=== PATIENT | female | born 1945 | race Caucasian/White ===

== ENCOUNTER → 2024-10-26 | Outpatient (CLI) | payer MEDICARE, BC, SELFPAY ==
[2024-10-26 12:56] LABS: Influenza A Ag Negative; Influenza B Ag Negative
== END | disposition home or self-care (01) ==
LOC: SLDO 11:33
PROVIDERS: PCP Specialist; Referring Provider Specialist; Visit Provider Specialist
DX: R50.9 Fever, unspecified (principal); R05.9 Cough, unspecified
CPT/HCPCS: 87502

== ENCOUNTER → 2024-10-27 | Outpatient (CLI) | payer MEDICARE, BC, SELFPAY ==
--- NOTE | 2024-10-27 09:49 | XR_ITS ---
Examination: PA lateral chest 2 views TECHNIQUE: Upright PA lateral chest 2 views Exam date and time: October 27, 2024 1101 hours INDICATIONS: Coughing shortness of breath beginning 4 days ago. FINDINGS: CABG Normal heart size Lungs are clear Moderate hyperexpansion Prominent osteopenia IMPRESSION: No pneumonia identified
[2024-10-27 12:09] LABS: Basophils # (Auto) 0.1 Thou/mm3 (0.0-0.2); Basophils % (Auto) 1 % (0-2.5); Eosinophils # (Auto) 0.4 Thou/mm3 (0.0-0.5); Eosinophils % (Auto) 4 % (0-10); Hematocrit 34.9 % (36.0-46.0); Hemoglobin 11.3 g/dL (12.0-16.0); Immature Granulocytes % (Auto) 0 % (0-0); Immature Granulocytes Auto 0.02 Thou/mm3 (0.00-0.00); Lymphocytes # (Auto) 1.4 Thou/mm3 (1.0-4.8); Lymphocytes % (Auto) 14 % (10-50); Mean Corpuscular HGB Conc 32.4 g/dl (31.0-37.0); Mean Corpuscular Volume 80 fL (80-100); Monocytes # (Auto) 0.9 Thou/mm3 (0.0-0.8); Monocytes % (Auto) 9 % (0-12); Neutrophils # (Auto) 7.1 Thou/mm3 (1.8-7.7); Neutrophils % (Auto) 72 % (37-80); Nucleated Red Blood Cell % 0 /100 WBC (0); Platelet Count 319 Thou/mm3 (140-440); RDW Standard Deviation 41.1 fL (36.4-46.3); Red Blood Count 4.34 Miln/mm3 (4.00-5.20); White Blood Count 9.9 Thou/mm3 (3.6-11.0)
[2024-10-27 12:22] LABS: B-Type Natriuretic Peptide 38 pg/mL (0-100)
[2024-10-27 12:26] LABS: Alanine Aminotransferase 12 U/L (10-49); Albumin, Serum 5.1 gm/dL (3.4-4.8); Albumin/Globulin Ratio 2.2 (1.2-2.2); Alkaline Phosphatase 77 U/L (46-116); Anion Gap 9 (7-16); Aspartate Amino Transferase 13 U/L (0-34); BUN/Creatinine Ratio 11 Ratio (12-20); Bilirubin,Total 0.7 mg/dL (0.3-1.2); Blood Urea Nitrogen 15 mg/dL (9-23); Calcium 10.2 mg/dL (8.3-10.6); Calcium (Corrected) 10.2 mg/dL (8.5-10.1); Carbon Dioxide 26.6 mMol/L (20.0-31.0); Chloride 98 mMol/L (98-107); Creatinine (Component) 1.4 mg/dL (0.6-1.3); Globulin 2.3 gm/dL (2.3-3.5); Glucose 151 mg/dL (74-106); Osmolality,Calculated 272 (275-295); Potassium 4.2 mMol/L (3.4-5.1); Sodium 134 mMol/L (136-145); Total Protein 7.4 gm/dL (5.7-8.2); Troponin I < 0.020 ng/mL (0.0-0.045); eGFR 38 See Note
[2024-10-27 12:29] LABS: D-Dimer 917 ng/mL (<600)
== END | disposition home or self-care (01) ==
LOC: CDIM 09:35 → COPL 11:10
PROVIDERS: Referring Provider Specialist; Visit Provider Radiology Diagnostic Radiology
DX: R06.2 Wheezing (principal); R06.00 Dyspnea, unspecified
CPT/HCPCS: 36415; 71046; 80053; 83880; 84484; 85025; 85379

== ENCOUNTER → 2024-10-28 | Outpatient (CLI) | payer MEDICARE, BC, SELFPAY ==
--- NOTE | 2024-10-28 08:47 | XR_ITS ---
Examination: CTA chest with intravenous contrast 2-D reconstructions 3-D reconstructions, vascular Date and time of exam: October 28, 2024 1148 hours INDICATIONS: Elevated d-dimer shortness of breath chest pain wheezing beginning October 27, 2024 CTDI: vol (mGy) 9.58 DLP: (mGycm) 260 Technique: Multiple axial sections of the thorax have been obtained. 3 mm slice thickness, from below the hemidiaphragms to above the apices of the lungs. Mediastinal and lung density settings have been obtained. 2-D sagittal and coronal reconstructions. 3-D angiographic renderings, 3-D volume renderings, 3D post processing, vascular maximum intensity projections obtained. Contrast administered is 60 cc Isovue-300. Low dose protocols were performed. One or more of the following dose reduction techniques were used; automated exposure control, adjustment of the mA and/or KV according to patient size, use of iterative reconstruction technique. Findings: No thoracic aortic aneurysmal dilatation No pulmonary artery emboli No paratracheal tracheobronchial or bronchopulmonary adenopathy Mild enlargement cardiac contour Heavy calcification left anterior descending left circumflex right coronary arteries No pneumonia or pulmonary edema No pleural disease No visualized liver or splenic lesion Kidneys partially visualized no hydronephrosis No pancreatic mass Severe osteopenia IMPRESSION: Heavy coronary artery calcification Negative for pulmonary artery emboli
== END | disposition home or self-care (01) ==
PROVIDERS: PCP Specialist; Referring Provider Specialist; Visit Provider Specialist
DX: I25.10 Atherosclerotic heart disease of native coronary artery without angina pectoris (principal)
CPT/HCPCS: 71275; A4649; Q9967

== ENCOUNTER 2024-12-10 17:42 | Inpatient (IN) | payer MEDICARE, BC, SELFPAY ==
[2024-12-10] VITALS (8 sets, daily range): BP systolic 173–196; BP diastolic 97–122; PULSE 82–99; RESP 16–94; TEMP 36.8; O2SAT 92–98; BMI 27.4; BMI 28.1
--- NOTE | 2024-12-10 17:55 | XR_ITS ---
Examination: CTA carotids with intravenous contrast CTA brain, head with intravenous contrast. 2-D sagittal, coronal reconstructions. 3-D reconstructions. Exam date and time: December 10, 2024 1818 hours INDICATIONS: Stroke alert, onset slurred speech, focal neurologic deficit beginning 3 hours ago CTDI: vol (mGy) 34.6 DLP: (mGycm) 151 Technique: Multiple CTA axial brain, head carotid images post intravenous contrast injection 75 cc, Isovue-370. 2-D sagittal, coronal reconstructions. 3-D reconstructions, 3-D post processing including vascular maximum intensity projection images. Low dose protocols were performed. One or more of the following dose reduction techniques were used; automated exposure control, adjustment of the mA and/or KV according to patient size, use of iterative reconstruction technique. Findings: Heavy calcification right carotid bifurcation origin right internal carotid artery, 60% stenosis origin right internal carotid artery Heavy calcification left carotid bifurcation origin left internal carotid artery, 70-80% stenosis origin left internal carotid artery Distal internal carotid arteries in the neck to fill Dominant left vertebral artery, no critical stenoses Moderate calcification juxtasellar internal carotid arteries Basilar artery posterior cerebral branches, middle cerebral arteries including M1 segments and trifurcation vessels as well as anterior cerebral arteries fill with no large vessel occlusions or thrombus IMPRESSION: 60% stenosis origin right internal carotid artery 70-80% stenosis origin left internal carotid artery No cerebral large vessel arterial occlusions or thrombus
--- NOTE | 2024-12-10 17:55 | EKG_ITS ---
[facility] Test Date: 2024-12-10 Pat Name: FABRICIO BONILLA Department: Room: - Gender: Female Outreach Counselor: : 1945 Requested By: De Arevalo Order Number: [id number] Reading MD: De Arevalo Measurements Intervals [place] Rate: 91 P: 52 RI: 156 QRS: 45 QRSD: 89 T: 53 QT: 350 QTc: 431 Interpretive Statements SINUS RHYTHM POSSIBLE LEFT ATRIAL ENLARGEMENT [-0.1mV P-WAVE IN V1/V2] Compared to ECG 08/30/2022 13:01:10 Ventricular premature complex(es) no longer present /store/S0/[id number]/ecg/[id number].pdf
--- NOTE | 2024-12-10 17:55 | XR_ITS ---
Examination: CT brain head without contrast. 2-D sagittal coronal reconstructions Date and time of exam:December 10, 2024 7058 hours INDICATIONS: Slurred speech, beginning 3 hours ago, stroke alert, onset focal neurologic deficit CTDI: vol (mGy):44.3 DLP: (mGycm):929 Technique: Multiple CT axial sections of the brain have been obtained, 5 mm slice thickness. Contrast has not been administered. 2-D sagittal, coronal reconstructions have been obtained Low dose protocols were performed. One or more of the following dose reduction techniques were used; automated exposure control, adjustment of the mA and/or KV according to patient size, use of iterative reconstruction technique. Findings: Mild ventricular enlargement. Intra-axial or extra-axial hemorrhage density is not seen. No mass effect or midline shift Basal cisterns are not remarkable. Fourth ventricle is midline. Cranial vault intact. Impression: Negative for acute hemorrhage, mass effect or midline shift
--- NOTE | 2024-12-10 17:56 | PD.EDRME ---
Rapid Medical Screening Exam RME Arrival date/time: 12/10/24 17:42 Chief Complaint: Headache Time Seen by Provider: 12/10/24 17:55 Vital signs: Vital Signs Temperature 98.2 F 12/10/24 17:43 Pulse Rate 96 12/10/24 17:43 Respiratory Rate 17 12/10/24 17:43 Blood Pressure 179/97 H 12/10/24 17:43 Pulse Oximetry (%) 96 12/10/24 17:43 Oxygen Delivery Method Room Air 12/10/24 17:43 RME Narrative: 78-year-old female who reports a history of CVA of which her symptoms at that time were something exploded in my head who presents with difficulty enunciating my words that initially started around 1700 this evening lasting for couple of minutes is since resolved. It has now returned in the ambulance bay here at around 1750. She denies focal weakness, with rapid neuroexam showing no focal or lateralizing motor weakness. Stroke alert was initiated, problem focused workup was started. Patient was seen by the additional provider for medical workup and final disposition.
--- NOTE | 2024-12-10 17:56 | PC.NURSE ---
PT TO CT
--- NOTE | 2024-12-10 17:59 | PC.NURSE ---
Pt. in CT.
--- NOTE | 2024-12-10 18:00 | PC.NURSE ---
Pt. in CT, pt. here from home, pt. states at 1500 today she was having trouble getting her words out, pt. states it cleared up and then again upon arrival to ER pt. states she was foggy and couldn't get her words out.
--- NOTE | 2024-12-10 18:04 | PC.NURSE ---
Dr. Alok Tate on tele monitor to see pt.
--- NOTE | 2024-12-10 18:25 | PC.NURSE ---
Pt. to room 2.
--- NOTE | 2024-12-10 18:36 | EDNOTE_ITS ---
Neuro Symptoms Deficit-RME/HPI General Chief Complaint: Headache Stated Complaint: HEADACHE Time Seen by Provider: 12/10/24 17:55 Arrival date/time: 12/10/24 17:42 Limitations: no limitations RME / HPI RME / HPI Narrative: 78-year-old female who reports a history of CVA of which her symptoms at that time were something exploded in my head who presents with difficulty enunciating my words that initially started around 1700 this evening lasting for couple of minutes is since resolved. It has now returned in the ambulance bay here at around 1750. She denies focal weakness, with rapid neuroexam showing no focal or lateralizing motor weakness. Stroke alert was initiated, problem focused workup was started. Patient was seen by the additional provider for medical workup and final disposition. DR. CID MAIN ED EVALUATION: 78 year old female presents to the Emergency Department BIB with complaint of aphasia that started around 1700 hours today. Patient had slurred speech that comes and goes. On arrival symptoms has resolved. Symptoms are moderate. PMHx: Hypertension, seizure disorder, izn-cgksukl-sulyydxkc diabetes, CVA. Recently admitted for acute appendicitis with perforation and localized peritonitis, discharge dated 03/13/24. Social Hx: No tobacco, alcohol, or substance use. Related Data Home Medications ?Medication ?Instructions ?Recorded ?Confirmed ATORVASTATIN CALCIUM 40 mg PO DAILY ##0 05/19/13 07/30/24 Ubidecarenone/Vitamin E Mixed 1 cap PO DAILY ##0 05/19/13 07/30/24 (Coq10 Sg 100 Softgel) duloxetine 60 mg capsule,delayed 60 mg PO DAILY ##0 05/19/13 07/30/24 release (Cymbalta) ezetimibe 10 mg tablet (Zetia) 10 mg PO DAILY ##0 05/19/13 07/30/24 lisinopril 5 mg tablet 40 mg PO DAILY ##0 05/19/13 07/30/24 zolpidem 10 mg tablet (Ambien) 10 mg PO HSPRN PRN Insomnia ##0 05/19/13 07/30/24 carvedilol 3.125 mg tablet (Coreg) 3.125 mg PO BID 08/30/22 07/30/24 folic acid 1 mg tablet 1 mg PO QID 08/30/22 07/30/24 hydrochlorothiazide 12.5 mg capsule 25 mg PO QAM 08/30/22 07/30/24 levetiracetam 500 mg tablet 500 mg PO BID 08/30/22 07/30/24 (Keppra) riboflavin (vitamin B2) 100 mg 100 mg PO QDAY 08/30/22 07/30/24 tablet epinephrine 0.3 mg/0.3 mL 0.3 ml subcut PRN PRN Anaphylaxis 09/02/22 07/30/24 injection, auto-injector nitroglycerin 0.4 mg sublingual 0.4 mg buccal PRN PRN Angina 09/02/22 07/30/24 tablet amlodipine 5 mg tablet 5 mg PO QDAY 07/30/24 07/30/24 Allergies Allergy/AdvReac Type Severity Reaction Status Date / Time bee venom protein (honey bee) Allergy Severe Anaphylaxis Verified 07/30/24 07:36 rosuvastatin [From Crestor] Allergy Severe Muscle Pain Verified 07/30/24 07:36 verapamil Allergy Severe PT Verified 07/30/24 07:36 SENSITIVITY Past Medical History Past Medical History NEUROLOGIC: Positive Neurological Disorders (slurred speech sometimes), Cerebrovascular Accident (hemorrhagic brain bleed), Transient Ischemic Attacks (TIA) and Migraine; Negative Seizures CARDIAC: Positive Cardiac Disorders, Myocardial Infarction (cabg), Cardiac Arrhythmia, Atrial Fibrillation, Coronary Artery Disease, Atherosclerotic Heart Disease (ABLATION), Hypercholesterolemia and Hypertension; Negative Congestive Heart Failure or Edema RESPIRATORY: Positive Sleep Apnea, Smoking Exposure and Tobacco Use; Negative Chronic Obstructive Pulmonary Disease (COPD) or Asthma GASTROINTESTINAL: Positive Gastrointestinal Disorders and Hemorrhoids GENITOURINARY: Negative Genitourinary Disorders or Renal Disease REPRODUCTIVE: Positive Previous Pregnancies MUSCULOSKELETAL: Positive Musculoskeletal Disorders, Degenerative Disk Disease, Carpal Tunnel Syndrome and Degenerative Joint Disease ENT: Positive Cataracts ENDOCRINE: Positive Endocrine Disorders and Diabetes Mellitus Type 2 (Janumet 50-100mg); Negative Diabetes Mellitus Type 1 HEMATOLOGIC: Negative Blood Disorders or Sickle Cell Disease PSYCHO/SOCIAL: Positive Depression and Anxiety OTHER HISTORY: Positive MRSA, Chicken Pox, Measles and Mumps; Negative Autoimmune Disease, Blood Transfusions, Blood Transfusion Reaction, Anesthesia Reactions, Organ Transplant, Chemotherapy, Radiation Therapy, Clostridium Difficile or Cancer Family History FAMILY HISTORY: Positive Family Psychiatric Problems (MOTHER DEPRESSION), Family Respiratory Disorders (FATHER COPD), Family Cardiac Disorders (FATHER PACEMAKER) and Family Surgery (MOTHER CEREBRAL HEMOTOMA, FATHER PACEMAKER, HIP REPLACEMENT); Negative Family Gastrointestinal Problems, Family Cancer or Family Anesthesia Reaction Surgical History SURGICAL: Positive Cardiac Surgery, Open Heart Surgery, Coronary Artery Bypass Graft and Cardiac Catheterization; Negative Endocrine Surgery, Ear Surgery, Abdominal Surgery or Organ Transplant Social History SMOKING STATUS: Never smoker SECOND HAND EXPOSURE: Yes SUBSTANCE USE: does not use 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 ED Exam General Limitations: Present no limitations General appearance: Present alert, in no apparent distress and other (dry mouth) Head Head exam: Present atraumatic, normocephalic and normal inspection Eye Eye exam: Present normal appearance, PERRL and EOMI ENT ENT exam: Present normal exam, normal oropharynx and mucous membranes dry Neck Neck exam: Present normal inspection, full ROM and trachea midline Chest Chest inspection: Present normal inspection and symmetric chest wall rise Respiratory Respiratory exam: Present normal lung sounds bilaterally Cardiovascular Cardiovascular exam: Present regular rate, normal rhythm and normal heart sounds Abdominal Exam Abdominal exam: Present soft and normal bowel sounds Extremities Exam Extremities exam: Present normal inspection and full ROM Back Exam Back exam: Present normal inspection and full ROM Neurological Exam Neurological exam: Present alert, oriented X3 and CN II-XII intact Psychiatric Psychiatric exam: Present normal affect and normal mood Skin Skin exam: Present warm, dry, intact and normal color Course Quality Measures none Orders Category Date Time Status Bedside Blood Glucose NOW Care 12/10/24 17:55 Active Bedside COVID-19 Antigen Test NOW Care 12/10/24 21:07 Active COVID-19 Screening Questionnaire NOW Care 12/10/24 21:03 Active Client Support Professional NOW Care 12/10/24 17:55 Active Continuous Pulse Oximetry NOW Care 12/10/24 17:55 Completed Decision to Admit X1 Care 12/10/24 21:03 Active EKG (ED ONLY) *Do not use* NOW Care 12/10/24 17:55 Completed In and Out Catheter NEEDED Care 12/10/24 17:55 Active Insert IV NOW Care 12/10/24 17:55 Active NIH Stroke Scale now Care 12/10/24 17:55 Active NPO NOW Care 12/10/24 17:55 Active Nurse Swallow Screen x1 Care 12/10/24 17:55 Active Consult to Neurology / Tele-Neurology Routine Cons 12/10/24 17:[address] angio stroke protocol Stat Exams 12/10/24 17:[address] stroke protocol Stat Exams 12/10/24 17:55 Completed EKG (ED Only) Stat Exams 12/10/24 17:55 Draft CBC Stat Lab 12/10/24 18:07 Completed Comprehensive Metabolic Panel Stat Lab 12/10/24 18:07 Completed Magnesium Stat Lab 12/10/24 18:07 Completed Partial Thromboplastin Time Stat Lab 12/10/24 18:07 Completed Prothrombin Time with INR Stat Lab 12/10/24 18:07 Completed Troponin I Stat Lab 12/10/24 18:07 Completed Urinalysis Stat Lab 12/10/24 18:58 Completed Aspirin Chew Med 12/10/24 21:35 Discontinued 81 mg PO X1 ONE Labetalol IV [Trandate IV] Med 12/10/24 20:46 Discontinued 10 mg IVP X1 ONE Ondansetron Inj [Zofran Inj] Med 12/10/24 17:55 Active 4 mg IV Q4HR PRN Oxygen Delivery NOW RT 12/10/24 17:55 Active Vital Signs Vital signs: Vital Signs Temperature 98.2 F 12/10/24 17:43 Pulse Rate 96 12/10/24 17:43 Respiratory Rate 17 12/10/24 17:43 Blood Pressure 179/97 H 12/10/24 17:43 Pulse Oximetry (%) 96 12/10/24 17:43 Oxygen Delivery Method Room Air 12/10/24 17:43 Procedures -ED EKG Interpretation #1: Date of EK12/10/24 Time of EK:46 Rate: 91 Interpretation: Interpreted by me Additional EKG comment: sinus rhythm, rate 91, no elevations, no depressions, no STEMI Neuro Symptoms / Deficit MDM Narrative MDM Narrative:: Linda Han am scribing for and in the presence of Dr. Cid. Patient data External records reviewed:: [facility] previous records (Reviewed last admission d ischarge dated 03/13/24, patient admitted for the following: Acute appendicitis with perforation and localized peritonitis.) and EMS form Clinical information provided by:: patient and EMS Social determinants that could affect healthcare access:: none Patient has the following chronic illnesses:: Hypertension, seizure disorder, srd-bbuopus-lfnamxwjp diabetes, CVA. Recently admitted for acute appendicitis with perforation and localized peritonitis, discharge dated 03/13/24. How is presenting disease/condition affected by chronic disease/condition?: exacerbated by Evaluation data The following diagnostics were reviewed and interpreted by me:: lab results, radiology exam(s) and EKG tracing(s) Lab and/or radiology exams considered but not ordered:: none Interpretation Summary: Procedure(s): CT angio stroke protocol Accession Number(s): [id number] cc: De Arevalo MD; Sarkis Hull MD~ Examination: CTA carotids with intravenous contrast CTA brain, head with intravenous contrast. 2-D sagittal, coronal reconstructions. 3-D reconstructions. Exam date and time: December 10, 2024 1818 hours INDICATIONS: Stroke alert, onset slurred speech, focal neurologic deficit beginning 3 hours ago CTDI: vol (mGy) 34.6 DLP: (mGycm) 151 Technique: Multiple CTA axial brain, head carotid images post intravenous contrast injection 75 cc, Isovue-370. 2-D sagittal, coronal reconstructions. 3-D reconstructions, 3-D post processing including vascular maximum intensity projection images. Low dose protocols were performed. One or more of the following dose reduction techniques were used; automated exposure control, adjustment of the mA and/or KV according to patient size, use of iterative reconstruction technique. Findings: Heavy calcification right carotid bifurcation origin right internal carotid artery, 60% stenosis origin right internal carotid artery Heavy calcification left carotid bifurcation origin left internal carotid artery, 70-80% stenosis origin left internal carotid artery Distal internal carotid arteries in the neck to fill Dominant left vertebral artery, no critical stenoses Moderate calcification juxtasellar internal carotid arteries Basilar artery posterior cerebral branches, middle cerebral arteries including M1 segments and trifurcation vessels as well as anterior cerebral arteries fill with no large vessel occlusions or thrombus IMPRESSION: 60% stenosis origin right internal carotid artery 70-80% stenosis origin left internal carotid artery No cerebral large vessel arterial occlusions or thrombus Dictated By: Sarkis Hull MD Procedure(s): CT stroke protocol Accession Number(s): [id number] cc: De Arevalo MD; Srakis Hull MD~ Examination: CT brain head without contrast. 2-D sagittal coronal reconstructions Date and time of exam:December 10, 2024 7058 hours INDICATIONS: Slurred speech, beginning 3 hours ago, stroke alert, onset focal neurologic deficit CTDI: vol (mGy):44.3 DLP: (mGycm):929 Technique: Multiple CT axial sections of the brain have been obtained, 5 mm slice thickness. Contrast has not been administered. 2-D sagittal, coronal reconstructions have been obtained Low dose protocols were performed. One or more of the following dose reduction techniques were used; automated exposure control, adjustment of the mA and/or KV according to patient size, use of iterative reconstruction technique. Findings: Mild ventricular enlargement. Intra-axial or extra-axial hemorrhage density is not seen. No mass effect or midline shift Basal cisterns are not remarkable. Fourth ventricle is midline. Cranial vault intact. Impression: Negative for acute hemorrhage, mass effect or midline shift Dictated By: Sarkis Hull MD Medications / Prescriptions Medications or Prescriptions considered but not ordered:: Not a candidate for TPA, she had a brain bleed in the past. Medication administrations:: Medication Administration History Ondansetron HCl (Ondansetron Inj 2 Mg/Ml Inj 2 Ml) 4 mg IV Q4HR PRN PRN Reason: NAUSEA OR VOMITING Stop: 01/09/25 17:54 Last Admin: 12/10/24 19:29 Dose: 4 mg Documented By: CHADD Discontinued Medications Aspirin (Aspirin 81 Mg Chew) 81 mg PO X1 ONE Stop: 12/10/24 21:36 Labetalol HCl (Labetalol Inj 5 Mg/Ml Vial 20 Ml) 10 mg IVP X1 ONE Stop: 12/10/24 20:47 Last Admin: 12/10/24 20:57 Dose: 10 mg Documented By: CHADD see above Consultations Consultation(s) initiated? (list below): Yes Consultation #1 (Physician, Specialty, Details): Discussed test HPI, PMHx, lab, radiology results and/or management with resident working with hospitalist Dr. Mcdonald. Will admit for further evaluation and m anagement. Accepts patient for admission. Time: 20:59 Diagnosis Neuro Differential Diagnosis: subarachnoid hemorrhage, cerebrovascular accident and transient cerebral ischemia Most likely diagnosis given after review of the tests above:: As noted below. Admission Indicated Admission indicated?: indicated Admission Request Was there a request for admission?: Yes Admission Attestation Admission request attestation: Discussed case with [] from Hospitalist service regarding admission. Discussed patients ED course, exam findings, labs, and radiology results. The Hospitalist [agrees,declines] to accept the patient for admission. Disposition Plan Disposition Plan: Admit Discharge Plan Plan Patient Disposition: Admit Acute Care w/in Hospital Prescriptions/Referrals Prescriptions/Med Rec: No Action ATORVASTATIN CALCIUM tablet 40 mg PO DAILY Qty: 0 lisinopril 5 MG tablet 40 mg PO DAILY Qty: 0 zolpidem [Ambien] 10 MG tablet 10 mg PO HSPRN PRN (Reason: Insomnia) Qty: 0 ezetimibe [Zetia] 10 MG tablet 10 mg PO DAILY Qty: 0 duloxetine [Cymbalta] 60 MG capsule,delayed release(DR/EC) 60 mg PO DAILY Qty: 0 Ubidecarenone/Vitamin E Mixed (Coq10 Sg 100 Softgel) 1 CAP capsule 1 cap PO DAILY Qty: 0 amlodipine 5 mg tablet 5 mg PO QDAY riboflavin (vitamin B2) 100 mg Tablet 100 mg PO QDAY levetiracetam [Keppra] 500 mg Tablet 500 mg PO BID carvedilol [Coreg] 3.125 mg Tablet 3.125 mg PO BID Rx Instructions: must administer with a meal/food hydrochlorothiazide 12.5 mg Capsule 25 mg PO QAM Hold Instructions: Resume on 03/27/24. folic acid 1 mg Tablet 1 mg PO QID nitroglycerin 0.4 mg tablet, sublingual 0.4 mg BUCCAL PRN PRN (Reason: Angina) epinephrine 0.3 mg/0.3 mL auto-injector 0.3 ml SUBCUT PRN PRN (Reason: Anaphylaxis) Referrals: Rich Arana MD [Primary Care Provider] - In 1 week Patient/Caregiver Discharge Instructions Print Language: [place] Stand Alone Forms: Tiffany Award Info., Patient Portal Info Letter
--- NOTE | 2024-12-10 18:45 | PC.NURSE ---
Pt. spouse and pt.son is bedside, pt. stating she wants to go home.
[2024-12-10 18:47] LABS: Basophils # (Auto) 0.1 Thou/mm3 (0.0-0.2); Basophils % (Auto) 1 % (0-2.5); Eosinophils # (Auto) 0.2 Thou/mm3 (0.0-0.5); Eosinophils % (Auto) 2 % (0-10); Hematocrit 36.1 % (36.0-46.0); Immature Granulocytes % (Auto) 0 % (0-0); Immature Granulocytes Auto 0.04 Thou/mm3 (0.00-0.00); Lymphocytes # (Auto) 1.8 Thou/mm3 (1.0-4.8); Lymphocytes % (Auto) 18 % (10-50); Mean Corpuscular HGB Conc 33.2 g/dl (31.0-37.0); Mean Corpuscular Hemoglobin 25.8 pg (25.0-35.0); Mean Corpuscular Volume 78 fL (80-100); Monocytes # (Auto) 0.9 Thou/mm3 (0.0-0.8); Monocytes % (Auto) 9 % (0-12); Neutrophils # (Auto) 6.8 Thou/mm3 (1.8-7.7); Neutrophils % (Auto) 70 % (37-80); Nucleated Red Blood Cell % 0 /100 WBC (0); Platelet Count 290 Thou/mm3 (140-440); RDW Standard Deviation 38.2 fL (36.4-46.3); Red Blood Count 4.66 Miln/mm3 (4.00-5.20); White Blood Count 9.8 Thou/mm3 (3.6-11.0)
--- NOTE | 2024-12-10 18:48 | ESCONSULT_ITS ---
Tele Neuro Consultation Consultation Date 12/10/24 Most Recent Vital Signs Last Vital Signs Temp 98.2 F 12/10/24 17:43 Pulse 99 12/10/24 18:18 Resp 17 12/10/24 18:18 BP 182/115 H 12/10/24 18:18 Pulse Ox 96 12/10/24 18:18 O2 Del Method Room Air 12/10/24 18:18 Consultation Narrative [facility] Tele[facility]urology Consult Services Patient Name:???Crew, Rosa Antonio Date of :???1945 Identification Number:??? Date of Service:???12/10/2024 17:54:19 Diagnosis:?R47.81 - Slurred speech Impression: ?Patient presented with transient slurred speech. Head CT shows no acute process. No thrombolytics were offered due to history of hemorrhage. Would recommend Asa for secondary prevention. Our recommendations are outlined below. Recommendations: ? Stroke/Telemetry Floor ? Neuro Checks ? Bedside Swallow Eval ? DVT Prophylaxis ? IV Fluids, Normal Saline ? Head of Bed 30 Degrees ? Euglycemia and Avoid Hyperthermia (PRN Acetaminophen) ? Initiate or continue Aspirin 325 MG daily Sign Out: ? Discussed with Emergency Department Provider Advanced Imaging:CTA Head and Neck Completed. LVO:No Patient in not a candidate for TOM Metrics: Last Known Well: 12/10/2024 15:00:00 Dispatch Time: 12/10/2024 17:54:19 Arrival Time: 12/10/2024 17:42:00 Initial Response Time: 12/10/2024 18:03:00Symptoms: Slurred speech. Initial patient interaction: 12/10/2024 18:04:30 NIHSS Assessment Completed: 12/10/2024 18:11:00Patient is not a candidate for Thrombolytic. Thrombolytic Medical Decision: 12/10/2024 18:11:01Patient was not deemed candidate for Thrombolytic because of following reasons: History of previous intracranial hemorrhage, intracranial neoplasm . CT head showed no acute hemorrhage or acute core infarct. Primary Provider Notified of Diagnostic Impression and Management Plan on: 12/10/2024 18:45:48 History of Present Illness:Patient is a 78 year old Female. Patient was brought by EMS for symptoms of Slurred speech. Past Medical history of Stroke, Hypertension, Hyperlipidemia, CAD, Brain hemorrhage, Seizures presented with transient slurred speech. history was provided by the patient at bedside. Patient had slurred speech that comes and goes. On arrival symptoms has resolved. Associated with a headache. ? Past Medical History: ?Hypertension ?Hyperlipidemia ?Coronary Artery Disease ?Stroke ?Seizures Medications: No Anticoagulant use? No Antiplatelet use Reviewed EMR for current medications Allergies:? Reviewed Social History: Drug Use: No Family History: There is no family history of premature cerebrovascular disease pertinent to this consultation ROS : 14 Points Review of Systems was performed and was negative except mentioned in HPI. Past Surgical History: There Is No Surgical History Contributory To Today?s Visit ? Examination: BP(/),?Pulse(88), 1A: Level of Consciousness - Alert; keenly responsive?+ 0 1B: Ask Month and Age - Both Questions Right?+ 0 1C: Blink Eyes & Squeeze Hands - Performs Both Tasks?+ 0 2: Test Horizontal Extraocular Movements - Normal?+ 0 3: Test Visual Contreras - No Visual Loss?+ 0 4: Test Facial Palsy (Use Grimace if Obtunded) - Normal symmetry?+ 0 5A: Test Left Arm Motor Drift - No Drift for 10 Seconds?+ 0 5B: Test Right Arm Motor Drift - No Drift for 10 Seconds?+ 0 6A: Test Left Leg Motor Drift - No Drift for 5 Seconds?+ 0 6B: Test Right Leg Motor Drift - No Drift for 5 Seconds?+ 0 7: Test Limb Ataxia (FNF/Heel-Almanza) - No Ataxia?+ 0 8: Test Sensation - Normal; No sensory loss?+ 0 9: Test Language/Aphasia - Normal; No aphasia?+ 0 10: Test Dysarthria - Normal?+ 0 11: Test Extinction/Inattention - No abnormality?+ 0 NIHSS Score:?0 Pre-Morbid Modified Dallin Scale:0 Points = No symptoms at all Spoke with :?Dr Cid This consult was conducted in real time using interactive audio and video technology. Patient was informed of the technology being used for this visit and agreed to proceed. Patient located in hospital and provider located at home/office setting. Patient is being evaluated for possible acute neurologic impairment and high probability of imminent or life-threatening deterioration. I spent total of 30 minutes providing care to this patient, including time for face to face visit via telemedicine, review of medical records, imaging studies and discussion of findings with providers, the patient and/or family. Dr Alok Lee-Jeffrey Cal[facility] For Inpatient follow-up with [facility] physician please call [facility] at . As we are not an outpatient service for any post hospital discharge needs please contact the hospital for assistance. If you have any questions for the [facility] physicians or need to reconsult for clinical or diagnostic changes please contact us via [facility] at .
[2024-12-10 19:05] LABS: Collection Type, Urine Clean Catch
[2024-12-10 19:06] LABS: Partial Thromboplastin Time 29.8 Seconds (22.0-36.0); Prothrombin Time 10.9 Seconds (9.0-12.2)
[2024-12-10 19:16] LABS: Bilirubin,Urine Negative (Negative); Blood,Urine Negative (Negative); Clarity,Urine Clear (Clear/Hazy); Color,Urine Lt-Yellow (Lt Yel-Yel); Glucose, Urine Negative (Negative); Ketones,Urine Negative (Negative); Leukocyte Esterase,Urine Positive (Negative); Nitrite,Urine Negative (Negative); Protein,Urine 1+ (Neg - Trace); RBC,Urine 3 /hpf (0-3); Specific Gravity,Urine 1.015 (1.001-1.035); Squamous Epithelial Cell,Urine 1 /hpf (0-5); Urobilinogen,Urine Negative mg/dL (0.0-1.0); WBC,Urine 2 /hpf (0-5)
[2024-12-10 19:19] LABS: Alanine Aminotransferase 13 U/L (10-49); Albumin, Serum 5.1 gm/dL (3.4-4.8); Albumin/Globulin Ratio 1.8 (1.2-2.2); Alkaline Phosphatase 71 U/L (46-116); Anion Gap 9 (7-16); Aspartate Amino Transferase 19 U/L (0-34); BUN/Creatinine Ratio 15 Ratio (12-20); Bilirubin,Total 0.5 mg/dL (0.3-1.2); Blood Urea Nitrogen 20 mg/dL (9-23); Calcium 10.1 mg/dL (8.3-10.6); Calcium (Corrected) 10.1 mg/dL (8.5-10.1); Chloride 99 mMol/L (98-107); Creatinine (Component) 1.3 mg/dL (0.6-1.3); Estimated Creatinine Clearance 32.6 mL/min (>60); Globulin 2.8 gm/dL (2.3-3.5); Glucose 127 mg/dL (74-106); Magnesium 1.6 mg/dL (1.6-2.6); Osmolality,Calculated 270 (275-295); Potassium 3.8 mMol/L (3.4-5.1); Sodium 133 mMol/L (136-145); Total Protein 7.9 gm/dL (5.7-8.2); Troponin I < 0.020 ng/mL (0.0-0.045); eGFR 42 See Note
[2024-12-10] MEDS: ONDANSETRON INJ 2 MG/ML INJ 2 ML 4 MG IV (19:29)
[2024-12-10] MEDS: LABETALOL INJ 5 MG/ML VIAL 20 ML 10 MG IVP (20:57)
--- NOTE | 2024-12-10 21:55 | ECHO_ITS ---
Transthoracic Echo Report Ht (in): 62 Wt (lb): 159 Exam Location: Echo Lab Status: Emergency Dye Weigher Helper: Anayeli Whalen Indications: Procedure Performed: BP: 185 / 96 HR: 100 Technical Quality: Technically difficult study MEASUREMENTS (Male / Female) Normal Values 2D ECHO LV Diastolic Diameter PLAX 5.0 cm 4.2 - 5.9 / 3.9 - 5.3 cm LV Systolic Diameter PLAX 3.6 cm IVS Diastolic Thickness 1.0 cm 0.6 - 1.0 / 0.6 - 0.9 cm LVPW Diastolic Thickness 0.8 cm 0.6 - 1.0 / 0.6 - 0.9 cm LV Relative Wall Thickness 0.4 LVOT Diameter 2.0 cm LV Ejection Fraction MOD BP 53.7 % >= 55 % LV Cardiac Index MOD BP 2366.9 cm?/min?m? LV Ejection Fraction MOD 4C 52.0 % LV Cardiac Index MOD 4C 2122.5 cm?/min?m? LV Ejection Fraction 4C AL 53.2 % LV Cardiac Index 4C AL 2233.9 cm?/min?m? LV Ejection Fraction MOD 2C 56.8 % LV Cardiac Index MOD 2C 2533.6 cm?/min?m? LV Ejection Fraction 2C AL 61.4 % LV Cardiac Index 2C AL 2757.7 cm?/min?m? LA Volume Index 19.8 cm?/m? 16 - 28 cm?/m? M-MODE Aortic Root Diameter MM 2.7 cm LA Systolic Diameter MM 3.4 cm LA Ao Ratio MM 1.3 AV Cusp Separation MM 1.3 cm DOPPLER AV Peak Velocity 132.0 cm/s AV Peak Gradient 7.0 mmHg AV Mean Gradient 3.0 mmHg AV Velocity Time Integral 26.8 cm LVOT Peak Velocity 115.0 cm/s LVOT Peak Gradient 5.3 mmHg LVOT Velocity Time Integral 22.1 cm LVOT Cardiac Index 3857.6 cm?/min?m? AV Area Cont Eq vti 2.6 cm? AV Area Cont Eq pk 2.7 cm? MV Area PHT 2.6 cm? Mitral E Point Velocity 43.7 cm/s Mitral A Point Velocity 80.0 cm/s Mitral E to A Ratio 0.5 LV E' Lateral Velocity 6.1 cm/s Mitral E to LV E' Lateral Ratio 7.2 LV E' Septal Velocity 4.0 cm/s Mitral E to LV E' Septal Ratio 10.8 PV Peak Velocity 121.0 cm/s PV Peak Gradient 5.9 mmHg FINDINGS Left Ventricle Normal left ventricular size, wall thickness, systolic function with no obvious regional wall motion abnormalities. Normal left ventricular diastolic filling pattern for age. The ejection fraction is v isually estimated at 50%. Right Ventricle The right ventricle is normal in size and systolic function. Left Atrium The left atrium is normal by two-dimensional, color flow and Doppler imaging with no structural abnormalities, no thrombus formation present. Right Atrium The right atrium is normal by two-dimensional imaging, color flow and Doppler imaging with no struct ural abnormalities, no thrombus formation present. Atrial Septum The interatrial septum appears normal with no evidence of a shunt. Aorta The aorta is normal by two-dimensional, color flow and Doppler interrogation. Mitral Valve The mitral valve is normal by two-dimensional, color flow and Doppler interrogation. There is no sig nificant mitral valve regurgitation, stenosis or prolapse. Aortic Valve The aortic valve is trileaflet and normal by two-dimensional, color flow and Doppler interrogation. There is trace aortic valve regurgitation. Tricuspid Valve The tricuspid valve is normal by two-dimensional, color flow and Doppler interrogation. There is no significant tricuspid valve regurgitation. Pulmonic Valve The pulmonic valve is not well visualized. There is no significant pulmonic valve regurgitation. Vessels The pulmonary artery appears normal. The inferior vena cava pulmonary and hepatic veins appear danny l. Pericardium The pericardium is normal by two-dimensional imaging. There is no significant pericardial effusion. CONCLUSIONS Indication: CVA/TIA Negative bubble study for PFO or ASD. Consider JENNIFER if high index of clinical suspicion Normal LV size and function. Estimated EF 50%. Grade I diastolic dysfunction. Normal RV size and function. Trace AI. Kip Spicer (Electronically Signed) Final Date: 13 December 2024 12:37
--- NOTE | 2024-12-10 22:08 | ESHP_ITS ---
Documentation for date of: 12/10/24 HPI History of Present Illness Chief complaint: aphasia started few hours before admission History of present illness: HPI: A 78-year-old female patient reportedly known case of coronary artery disease status post bypass surgery follow-up with Dr. Huff in [place], hypertension, hyperlipidemia, remote history of hemorrhagic stroke 4 years ago, frequent headaches, questionable seizures, presented to the ED after she started to experience difficulty with speech. Patient reported that she has frequent headaches that comes and goes even before her hemorrhagic stroke. However today she started to have residual headaches however she would noticed that she was having difficulty speaking and became slurred. She also mentioned that her memory became foggy however she denied any difficulty swallowing, loss of balance, weakness, numbness, facial asymmetry, or double vision. Patient denied any dizziness however she reported some dry heaves. Patient denied any tinnitus or double vision. Patient has never had such symptoms in the past. Since her stroke that almost happened 40 years ago patient has not seen any neurologist in the past. In review of other system patient denied any chest pain, shortness of breath, skin rash, denied any abdominal pain diarrhea or constipation, denied any dysuria or frequency, she reported that she has been using her medication regularly. ED course: In the ED patient was found to have blood pressure of 179/97 however at bedside her blood pressure was 196/105. Other vitals within normal limits except her pulse rate of 96, CBC within normal limits, coagulation panel within normal limits, CMP showed sodium level of 133, potassium 3.8, creatinine 1.3, ejection fraction of 42, glucose 127, calcium and magnesium within normal limits, urine analysis was only positive for protein +1. Brain CT scan was negative for any acute hemorrhage or mass effect however it only showed mild ventricular enlargement. CT angio of head and neck showed 60% stenosis in the right internal carotid artery, 70 to 80% stenosis of the left internal carotid artery, no cerebral large vessels arterial occlusion or thrombus. NIHSS score was 0 on presentation. Consultation to the teleneurologist was ordered by the emergency team and they recommended to admit the patient for stroke workup, they recommended to continue the patient on aspirin 325. PMH: As above PSX: Bypass surgery Social hx: Alcohol: Denied Tobacco: Denied Illicit drugs: Denied Allergies: Verapamil, rosuvastatin, honeybees Exam Vital Signs Temp Pulse Resp BP Pulse Ox O2 Del Method 98.3 F 91 16 196/105 H 96 Room Air 12/10/24 20:47 12/10/24 20:57 12/10/24 20:47 12/10/24 20:57 12/10/24 20:47 12/10/24 20:47 Narrative Exam GEN: AOx3, able to speak full sentences, bothered by the light in the ceiling HEENT: NC/AC, PERRLA, oral mucosa moist, neck supple CVS: RRR, S1-S2 present, no murmurs appreciated RESP: Midline surgical scar noted, CTAB GI: soft,non distended, non tender, NBS MSK: able to move all 4 limbs, no lower extremity edema SKIN: warm and dry SECURITY GUARDS DISPATCHER: NIHSS score of 0, CN II-XII and Sensation grossly intact. Results: Labs 12/10/24 18:07 12/10/24 18:07 Labs: Short CBC 12/10/24 Range/Units 18:07 WBC 9.8 (3.6-11.0) Thou/mm3 Hgb 12.0 (12.0-16.0) g/dL Hct 36.1 (36.0-46.0) % Plt Count 290 (140-440) Thou/mm3 BMP 12/10/24 18:07 Sodium 133 L Potassium 3.8 Chloride 99 Carbon Dioxide 25.0 BUN 20 Creatinine 1.3 Glucose 127 H Calcium 10.1 Cardiac Enzymes 12/10/24 Range/Units 18:07 Troponin I < 0.020 (0.0-0.045) ng/mL Liver Function 12/10/24 Range/Units 18:07 Total Bilirubin 0.5 (0.3-1.2) mg/dL AST 19 (0-34) U/L ALT 13 (10-49) U/L Alkaline Phosphatase 71 (46-116) U/L Albumin 5.1 H (3.4-4.8) gm/dL Urine 12/10/24 Range/Units 18:58 Urine Color Lt-Yellow (Lt Yel-Yel) Urine Clarity Clear (Clear/Hazy) Urine pH 7.0 (5.0-7.0) Ur Specific [place] 1.015 (1.001-1.035) Urine Protein 1+ A (Neg - Trace) Urine Glucose (UA) Negative (Negative) Quality Measures Quality Measures none Advance care planning discussed with:: patient, spouse and child Medications Home Medications and Allergies Home Medications ?Medication ?Instructions ?Recorded ?Confirmed ?Type ATORVASTATIN CALCIUM 40 mg PO DAILY ##0 05/19/13 12/10/24 History Ubidecarenone/Vitamin E Mixed 1 cap PO DAILY ##0 05/19/13 07/30/24 History (Coq10 Sg 100 Softgel) duloxetine 60 mg capsule,delayed 60 mg PO DAILY ##0 05/19/13 12/10/24 History release (Cymbalta) ezetimibe 10 mg tablet (Zetia) 10 mg PO DAILY ##0 05/19/13 12/10/24 History lisinopril 5 mg tablet 40 mg PO DAILY ##0 05/19/13 12/10/24 History zolpidem 10 mg tablet (Ambien) 10 mg PO HSPRN PRN Insomnia ##0 05/19/13 12/10/24 History carvedilol 3.125 mg tablet (Coreg) 3.125 mg PO BID 08/30/22 07/30/24 History folic acid 1 mg tablet 1 mg PO QID 08/30/22 12/10/24 History hydrochlorothiazide 12.5 mg capsule 25 mg PO QAM 08/30/22 12/10/24 History levetiracetam 500 mg tablet 500 mg PO BID 08/30/22 12/10/24 History (Keppra) riboflavin (vitamin B2) 100 mg 100 mg PO QDAY 08/30/22 12/10/24 History tablet epinephrine 0.3 mg/0.3 mL 0.3 ml subcut PRN PRN Anaphylaxis 09/02/22 12/10/24 History injection, auto-injector nitroglycerin 0.4 mg sublingual 0.4 mg buccal PRN PRN Angina 09/02/22 12/10/24 History tablet amlodipine 5 mg tablet 5 mg PO QDAY 07/30/24 07/30/24 History Allergies Allergy/AdvReac Type Severity Reaction Status Date / Time bee venom protein (honey bee) Allergy Severe Anaphylaxis Verified 07/30/24 07:36 rosuvastatin [From Crestor] Allergy Severe Muscle Pain Verified 07/30/24 07:36 verapamil Allergy Severe PT Verified 07/30/24 07:36 SENSITIVITY Visit Medications Acetaminophen (Acetaminophen 325 Mg Tablet) 650 mg PO Q6H PRN PRN Reason: Fever >101.5 Stop: 01/09/25 21:43 Acetaminophen (Acetaminophen 325 Mg Tablet) 650 mg PO Q6H PRN PRN Reason: PAIN SCALE 1-3 (mild Stop: 01/09/25 21:48 Aspirin (Aspirin 325 Mg Tablet) 325 mg PO QDAY YANE Stop: 01/10/25 08:59 Atorvastatin Calcium (Atorvastatin Calcium 20 Mg Tablet) 80 mg PO HS YANE Stop: 01/10/25 20:59 Heparin Sodium (Porcine) (Heparin Sod Inj 5000 Unit/Ml Vial) 5,000 unit SC Q8HR YANE Stop: 12/24/24 21:59 Labetalol HCl (Labetalol Inj 5 Mg/Ml Vial 20 Ml) 10 mg IVP Q2H PRN PRN Reason: SBP >220, Inform MD Stop: 01/09/25 21:59 Morphine Sulfate (Morphine Sulf Inj 10 Mg/Ml Vial) 1 mg IVP Q3H PRN PRN Reason: PAIN SCALE 7-10 (Severe Stop: 12/15/24 21:54 Ondansetron HCl (Ondansetron Inj 2 Mg/Ml Inj 2 Ml) 4 mg IV Q4HR PRN PRN Reason: NAUSEA OR VOMITING Stop: 01/09/25 17:54 Last Admin: 12/10/24 19:29 Dose: 4 mg Oxycodone/Acetaminophen (Oxycodone/Apap 5/325 Tablet) 1 tab PO Q6H PRN PRN Reason: PAIN SCALE 4-6 (Moderate Stop: 12/15/24 21:54 Pantoprazole Sodium (Pantoprazole 40 Mg Tablet) 40 mg PO QDAY [facility] Stop: 01/10/25 08:59 Sennosides (Senna Tablet) 1 tab PO QDAY PRN; Protocol PRN Reason: constipation Stop: 01/09/25 21:48 Discontinued Medications Aspirin (Aspirin 81 Mg Chew) 81 mg PO X1 ONE Stop: 12/10/24 21:36 Labetalol HCl (Labetalol Inj 5 Mg/Ml Vial 20 Ml) 10 mg IVP X1 ONE Stop: 12/10/24 20:47 Last Admin: 12/10/24 20:57 Dose: 10 mg Assessment & Plan Assessment Summary:A 78-year-old female patient reportedly known case of coronary artery disease status post bypass surgery follow-up with Dr. Huff in [place], hypertension, hyperlipidemia, remote history of hemorrhagic stroke 4 years ago, frequent headaches, questionable seizures, presented to the ED after she started to experience difficulty with speech. Patient was admitted for stroke workup Assessment and plan #Stroke most likely secondary to TIA #TIA rule out #Aphasia #Remote history of hemorrhagic stroke 40 years ago #Questionable history of seizures #Carotid artery stenosis Patient presented with aphasia that lasted for few hours before admission and resolved by itself associated with fogginess. No other focal neurological deficit CBC within normal limits, coagulation panel within normal limits, CMP showed sodium level of 133, potassium 3.8, creatinine 1.3, GFR of 42, glucose 127, calcium and magnesium within normal limits. Brain CT scan was negative for any acute hemorrhage or mass effect however it only showed mild ventricular enlargement. CT angio of head and neck showed 60% stenosis in the right internal carotid artery, 70 to 80% stenosis of the left internal carotid artery, no cerebral large vessels arterial occlusion or thrombus. NIHSS score was 0 on presentation. Consultation to the teleneurologist was ordered by the emergency team and they recommended to admit the patient for stroke workup, they recommended to continue the patient on aspirin 325. Plan ? Admit patient to telemetry ? Consult neurology in house Dr Mueller was sent, pending recommendations ? Continue the patient on aspirin 325 mg p.o. daily per teleneurology ? Start the patient on atorvastatin 80 milligram p.o. at bedtime, monitor for myopathy as the patient has history of muscle pain when she was on rosuvastatin ? Bedside swallow eval, may feed if the patient passed ? Speech evaluation, physical therapy evaluation ? MRI stroke protocol ? Echo with bubble study ? Neurochecks every 4 hours, seizures precautions. ? HOB 30 degree #History of coronary artery disease status post bypass surgery Patient is following up with Dr. Huff in [place], she mentions that she is taking Coreg for her blood pressure Plan ? Echocardiogram with bubble study was ordered, ? Obtain medical records was ordered please follow-up. ? Patient already on aspirin 325 mg #Hypertension emergency Patient presented with stroke symptoms with high blood pressure of 195/99 Plan ? Pending med reconciliation to resume her home meds after 24 hours of permissive hypertension ? Labetalol 10 mg IV every 2 hours of systolic blood pressure more than 220 mmHg #History of prediabetes Last A1c was 6 6 months ago, random blood sugar at this time is 127. Plan ? Repeat A1c level a.m., start the patient on insulin sliding scale if elevated. Hospital Maintenance: FEN: Cardiac diet if patient passes bedside swallow eval DVT ppx: Heparin subcu GI ppx: Protonix p.o. IV lines: PIV Del Angel: None Code status: DO NOT INTUBATE Dispo: Telemetry - Patient's plan and care discussed with my attending, Dr. Harry Barba MD Internal Medicine PGY-2 Plan I have discussed and was present for the essential components of the history, physical examination, diagnosis, and treatment plan with the resident. I agree with the patient's care as documented by the resident and amended herein by me. Jim Mcdonald DO. Although this document has been carefully reviewed, there may still be some phonetic and other typographical errors. These errors are purely grammatical due to imperfections in the software program and should not be construed in any way to compromise the substance of the patient's medical care during this visit.
[2024-12-10] MEDS: ASPIRIN 81 MG CHEW PO (22:22)
[2024-12-10] MEDS: HEPARIN SOD INJ 5000 UNIT/ML VIAL SC (22:58)
--- NOTE | 2024-12-10 23:06 | VVPN_ITS ---
Telemedicine visit statement This visit was conducted with the use of phone was obtained on 12/10/24 at 2306. Documentation for date of: 12/10/24 Subjective Subjective Interval history: Patient presented with the slurred speech of acute onset but resolved. As her blood pressure was 170/122, given labetalol in the ER. Her symptoms have been resolved. Patient is being admitted to telemetry for TIA workup Virtual exam Vital Signs Temp Pulse Resp BP Pulse Ox O2 Del Method 98.3 F 91 20 173/122 H 92 L Room Air 12/10/24 22:08 12/10/24 22:08 12/10/24 22:08 12/10/24 22:08 12/10/24 22:08 12/10/24 22:08 Objective Labs 12/10/24 18:07 12/10/24 18:07 Labs: Laboratory Results - last 24 hr 12/10/24 12/10/24 18:07 18:58 WBC 9.8 RBC 4.66 Hgb 12.0 Hct 36.1 MCV 78 L MCH 25.8 MCHC 33.2 RDW Std Deviation 38.2 Plt Count 290 Neut % (Auto) 70 Lymph % (Auto) 18 Motley % (Auto) 9 Eos % (Auto) 2 Baso % (Auto) 1 Neut # (Auto) 6.8 Lymph # (Auto) 1.8 Motley # (Auto) 0.9 H Eos # (Auto) 0.2 Baso # (Auto) 0.1 Immature Gran # (Auto) 0.04 H Absolute Nucleated RBC 0.00 Immature Gran % 0 Nucleated RBC % 0 PT 10.9 INR 1.0 APTT 29.8 Sodium 133 L Potassium 3.8 Chloride 99 Carbon Dioxide 25.0 Anion Gap 9 BUN 20 Creatinine 1.3 Estim Creat Clear Calc 32.6 L eGFR 42 L BUN/Creatinine Ratio 15 Glucose 127 H Calculated Osmolality 270 L Calcium 10.1 Corrected Calcium 10.1 Magnesium 1.6 Total Bilirubin 0.5 AST 19 ALT 13 Alkaline Phosphatase 71 Troponin I < 0.020 Total Protein 7.9 Albumin 5.1 H Globulin 2.8 Albumin/Globulin Ratio 1.8 Ur Collection Type Clean Catch Urine Color Lt-Yellow Urine Clarity Clear Urine pH 7.0 Ur Specific [place] 1.015 Urine Protein 1+ A Urine Glucose (UA) Negative Urine Ketones Negative Urine Blood Negative Urine Nitrite Negative Urine Bilirubin Negative Urine Urobilinogen (Auto) Negative Ur Leukocyte Esterase Positive Urine RBC 3 Urine WBC 2 Ur Squamous Epith Cells 1 Urine Bacteria None Assessment & Plan Problem List (1) Transient cerebral ischemia: Qualifiers: Transient cerebral ischemia type: other Qualified Code(s): G45.8 - Other transient cerebral ischemic attacks and related syndromes Status: Resolved Assessment and plan: Follow-up with the TIA workup Continue with statin and aspirin (2) Carotid stenosis: Qualifiers: Laterality: left Qualified Code(s): I65.22 - Occlusion and stenosis of left carotid artery Status: Chronic Assessment and plan: Continue with aspirin and statin noted the CT angiogram showing stenosis on both sides (3) Hypertension: Status: Acute Assessment and plan: Continue with permissive blood pressure control
[2024-12-11] VITALS (9 sets, daily range): BP systolic 132–188; BP diastolic 71–103; PULSE 82–115; RESP 12–92; TEMP 36.3–36.9; O2SAT 92–96; BMI 61.7
--- NOTE | 2024-12-11 | XR_ITS ---
Examination: MRI brain without intravenous contrast. Date and time of exam: December 11, 2024 0757 hours Comparison September 11, 2018 INDICATIONS: Stroke alert December 10, 2024, difficulty speaking, confusion beginning yesterday Technique: Multiple axial and sagittal images of the brain obtained. Siemens high-resolution 1.5 Shayna short bore scanners utilized. Sagittal sections, T1-weighted, TR 500, TE 14, are performed. Axial sections proton-density and T2-weighted have been obtained. Inversion recovery axial images, TR 9, 260, TE 111, TI 2500. Diffusion weighted images, axial sections, TR 4800, TE 128, B value 1000 Axial sections, ADC map, TR 4800, TE 128 Findings: Enlargement of the sella turcica is not present. The optic chiasm and infundibular are not remarkable. Prepontine and interpeduncular cisterns are not enlarged. There is no localized enlargement of the medulla or earl. Fourth ventricle and cerebellar tonsils appear normal in position. No subacute area of hemorrhage density is seen. Mass in the cerebellopontine angle region is not evident. Globes symmetrical. Orbital musculature including medial lateral rectus muscles do not exhibit abnormality. Diffusion-weighted images demonstrate no focus of restricted diffusion. Increased white matter signal prominent Mass effect upon the ventricular system is not identified. Impression: Negative for acute hemorrhage, mass effect or midline shift. No acute infarct Prominent chronic microvascular white matter change
[2024-12-11] MEDS: ACETAMINOPHEN 325 MG TABLET 650 MG PO ×2 (04:54→16:08)
[2024-12-11] MEDS: HEPARIN SOD INJ 5000 UNIT/ML VIAL SC ×3 (04:55→20:10)
[2024-12-11] MEDS: ONDANSETRON INJ 2 MG/ML INJ 2 ML 4 MG IV (05:06)
[2024-12-11 05:54] LABS: Basophils # (Auto) 0.1 Thou/mm3 (0.0-0.2); Basophils % (Auto) 1 % (0-2.5); Eosinophils % (Auto) 0 % (0-10); Hematocrit 37.8 % (36.0-46.0); Hemoglobin 12.6 g/dL (12.0-16.0); Immature Granulocytes % (Auto) 0 % (0-0); Immature Granulocytes Auto 0.03 Thou/mm3 (0.00-0.00); Lymphocytes # (Auto) 2.5 Thou/mm3 (1.0-4.8); Lymphocytes % (Auto) 23 % (10-50); Mean Corpuscular HGB Conc 33.3 g/dl (31.0-37.0); Mean Corpuscular Hemoglobin 26.1 pg (25.0-35.0); Mean Corpuscular Volume 78 fL (80-100); Monocytes # (Auto) 1.1 Thou/mm3 (0.0-0.8); Monocytes % (Auto) 10 % (0-12); Neutrophils # (Auto) 7.2 Thou/mm3 (1.8-7.7); Neutrophils % (Auto) 66 % (37-80); Nucleated Red Blood Cell % 0 /100 WBC (0); Platelet Count 285 Thou/mm3 (140-440); RDW Standard Deviation 38.3 fL (36.4-46.3); Red Blood Count 4.83 Miln/mm3 (4.00-5.20)
[2024-12-11 06:21] LABS: Alanine Aminotransferase 10 U/L (10-49); Albumin, Serum 5.3 gm/dL (3.4-4.8); Alkaline Phosphatase 61 U/L (46-116); Anion Gap 11 (7-16); Aspartate Amino Transferase 19 U/L (0-34); BUN/Creatinine Ratio 13 Ratio (12-20); Bilirubin,Total 0.6 mg/dL (0.3-1.2); Blood Urea Nitrogen 18 mg/dL (9-23); Calcium 10.3 mg/dL (8.3-10.6); Calcium (Corrected) 10.3 mg/dL (8.5-10.1); Carbon Dioxide 26.5 mMol/L (20.0-31.0); Cardiac Risk Estimate 3.1 RATIO (3.7-5.6); Chloride 96 mMol/L (98-107); Cholesterol 165 mg/dL (132-200); Creatinine (Component) 1.4 mg/dL (0.6-1.3); Globulin 2.7 gm/dL (2.3-3.5); Glucose 135 mg/dL (74-106); HDL Cholesterol 53 mg/dL (40-60); LDL Cholesterol,Calculated 84 mg/dL (0-130); Magnesium 1.7 mg/dL (1.6-2.6); Osmolality,Calculated 270 (275-295); Phosphorous 4.3 mg/dL (2.4-5.1); Potassium 3.8 mMol/L (3.4-5.1); Sodium 133 mMol/L (136-145); Triglycerides 142 mg/dL (30-150); eGFR 38 See Note
[2024-12-11 06:26] LABS: Glucose Estimated Average 128 mg/dL (80-131); Hemoglobin A1C 6.1 % Hgb (4.8-6.0)
[2024-12-11] MEDS: DULoxetine HCL 30 MG CAPSULE 60 MG PO (08:33)
[2024-12-11] MEDS: PANTOPRAZOLE 40 MG TABLET PO (08:33)
[2024-12-11] MEDS: levETIRAcetam 250 MG TABLET 500 MG PO ×2 (08:33→20:08)
[2024-12-11] MEDS: Aspirin 325 MG TABLET PO (08:33)
--- NOTE | 2024-12-11 14:34 | ESPR_ITS ---
Documentation for date of: 12/11/24 Subjective Subjective Interval history: Patient seen at bedside today. Patient admitted overnight by night team due to aphasia. Patient states that she was having aphasia with no other associated focal neurological deficits and she called 911 due to the. She also said that she had hemorrhage about 40 years prior and has not had follow-up with neurology since then. Patient stated that she has returned back to baseline health. MRI today was negative for acute infarct and only revealed chronic microvascular white matter changes. Upon physical examination patient did not have any focal neurological deficits and is pending physical therapy along with speech therapy evaluation. Exam Vital Signs Temp Pulse Resp BP Pulse Ox O2 Del Method 97.7 F 95 19 132/71 H 95 Room Air 12/11/24 12:00 12/11/24 12:00 12/11/24 12:00 12/11/24 12:00 12/11/24 12:00 12/11/24 12:00 Narrative Exam GEN: AOx3, able to speak full sentences, bothered by the light in the ceiling HEENT: NC/AC, PERRLA, oral mucosa moist, neck supple CVS: RRR, S1-S2 present, no murmurs appreciated RESP: Midline surgical scar noted, CTAB GI: soft,non distended, non tender, NBS MSK: able to move all 4 limbs, no lower extremity edema SKIN: warm and dry RETURN TO FACTORY CLERK: NIHSS score of 0, CN II-XII and Sensation grossly intact. Objective Labs 12/11/24 05:12 12/11/24 05:12 Labs: Laboratory Results - last 24 hr 12/10/24 12/10/24 12/11/24 18:07 18:58 05:12 WBC 9.8 11.0 RBC 4.66 4.83 Hgb 12.0 12.6 Hct 36.1 37.8 MCV 78 L 78 L MCH 25.8 26.1 MCHC 33.2 33.3 RDW Std Deviation 38.2 38.3 Plt Count 290 285 Neut % (Auto) 70 66 Lymph % (Auto) 18 23 [place] % (Auto) 9 10 Eos % (Auto) 2 0 Baso % (Auto) 1 1 Neut # (Auto) 6.8 7.2 Lymph # (Auto) 1.8 2.5 [place] # (Auto) 0.9 H 1.1 H Eos # (Auto) 0.2 0.0 Baso # (Auto) 0.1 0.1 Immature Gran # (Auto) 0.04 H 0.03 H Absolute Nucleated RBC 0.00 0.00 Immature Gran % 0 0 Nucleated RBC % 0 0 PT 10.9 INR 1.0 APTT 29.8 Sodium 133 L 133 L Potassium 3.8 3.8 Chloride 99 96 L Carbon Dioxide 25.0 26.5 Anion Gap 9 11 BUN 20 18 Creatinine 1.3 1.4 H Estim Creat Clear Calc 32.6 L 48.0 L eGFR 42 L 38 L BUN/Creatinine Ratio 15 13 Glucose [address] Glu mg/dL 128 Hemoglobin A1c 6.1 H Calculated Osmolality 270 L 270 L Calcium 10.1 10.3 Corrected Calcium 10.1 10.3 H Phosphorus 4.3 Magnesium 1.6 1.7 Total Bilirubin 0.5 0.6 AST 19 19 ALT 13 10 Alkaline Phosphatase 71 61 Troponin I < 0.020 Total Protein 7.9 8.0 Albumin 5.1 H 5.3 H Globulin 2.8 2.7 Albumin/Globulin Ratio 1.8 2.0 Triglycerides 142 Cholesterol 165 LDL Cholesterol, Calc 84 HDL Cholesterol 53 Cholesterol/HDL Ratio 3.1 L Ur Collection Type Clean Catch Urine Color Lt-Yellow Urine Clarity Clear Urine pH 7.0 Ur Specific [place] 1.015 Urine Protein 1+ A Urine Glucose (UA) Negative Urine Ketones Negative Urine Blood Negative Urine Nitrite Negative Urine Bilirubin Negative Urine Urobilinogen (Auto) Negative Ur Leukocyte Esterase Positive Urine RBC 3 Urine WBC 2 Ur Squamous Epith Cells 1 Urine Bacteria None Quality Measures Quality Measures none Advance care planning discussed with:: patient Assessment & Plan Assessment Current Active Medications: Generic Name Dose Route Start Last Admin Trade Name Rolando PRN Reason Stop Dose Admin Acetaminophen 650 mg 12/10/24 21:44 Acetaminophen 325 Mg Tablet PO 01/09/25 21:43 Q6H PRN Fever >101.5 Acetaminophen 650 mg 12/10/24 21:49 12/11/24 04:54 Acetaminophen 325 Mg Tablet PO 01/09/25 21:48 650 mg Q6H PRN Administration PAIN SCALE 1-3 (mild Aspirin 325 mg 12/11/24 09:00 12/11/24 08:33 Aspirin 325 Mg Tablet PO 01/10/25 08:59 325 mg QDAY YANE Administration Atorvastatin Calcium 80 mg 12/11/24 21:00 Atorvastatin Calcium 20 Mg Tablet PO 01/10/25 20:59 HS YANE Duloxetine HCl 60 mg 12/11/24 09:00 12/11/24 08:33 Duloxetine Hcl 30 Mg Capsule PO 01/10/25 08:59 60 mg DAILY YANE Administration Heparin Sodium (Porcine) 5,000 unit 12/10/24 22:00 12/11/24 13:26 Heparin Sod Inj 5000 Unit/Ml Vial SC 12/24/24 21:59 5,000 unit Q8HR YANE Administration Labetalol HCl 10 mg 12/10/24 22:00 Labetalol Inj 5 Mg/Ml Vial 20 Ml IVP 01/09/25 21:59 Q2H PRN SBP >220, Inform Levetiracetam 500 mg 12/11/24 09:00 12/11/24 08:33 Levetiracetam 250 Mg Tablet PO 01/10/25 08:59 500 mg BID YANE Administration Morphine Sulfate 1 mg 12/10/24 21:55 Morphine Sulf Inj 10 Mg/Ml Vial IVP 12/15/24 21:54 Q3H PRN PAIN SCALE 7-10 (Severe Home Medication- 100 mg 12/11/24 09:00 12/11/24 12:42 Please Speak With PO 01/10/25 08:59 Not Given Patient Caregiver To QDAY YANE Have Rx Brought To [facility] Ondansetron HCl 4 mg 12/10/24 17:55 12/11/24 05:06 Ondansetron Inj 2 Mg/Ml Inj 2 Ml IV 01/09/25 17:54 4 mg Q4HR PRN Administration NAUSEA OR VOMITING Oxycodone/Acetaminophen 1 tab 12/10/24 21:55 Oxycodone/Apap 5/325 Tablet PO 12/15/24 21:54 Q6H PRN PAIN SCALE 4-6 (Moderate Pantoprazole Sodium 40 mg 12/11/24 09:00 12/11/24 08:33 Pantoprazole 40 Mg Tablet PO 01/10/25 08:59 40 mg QDAY YANE Administration Sennosides 1 tab 12/10/24 21:49 Senna Tablet PO 01/09/25 21:48 QDAY PRN constipation Protocol Plan Summary:A 78-year-old female patient reportedly known case of coronary artery disease status post bypass surgery follow-up with Dr. Huff in [place], hypertension, hyperlipidemia, remote history of hemorrhagic stroke 4 years ago, frequent headaches, questionable seizures, presented to the ED after she started to experience difficulty with speech. Patient was admitted for stroke workup Assessment and plan #Stroke most likely secondary to TIA #TIA rule out #Aphasia #Remote history of hemorrhagic stroke 40 years ago #Questionable history of seizures #Carotid artery stenosis Patient presented with aphasia that lasted for few hours before admission and resolved by itself associated with fogginess. No other focal neurological deficit CBC within normal limits, coagulation panel within normal limits, CMP showed sodium level of 133, potassium 3.8, creatinine 1.3, GFR of 42, glucose 127, calcium and magnesium within normal limits. Brain CT scan was negative for any acute hemorrhage or mass effect however it only showed mild ventricular enlargement. CT angio of head and neck showed 60% stenosis in the right internal carotid artery, 70 to 80% stenosis of the left internal carotid artery, no cerebral large vessels arterial occlusion or thrombus. NIHSS score was 0 on presentation. Consultation to the teleneurologist was ordered by the emergency team and they recommended to admit the patient for stroke workup, they recommended to continue the patient on aspirin 325. Plan ? Admit patient to telemetry ? Consult neurology in house Dr Mueller was sent, who suspect that patient was having TIA ? Continue the patient on aspirin 325 mg p.o. daily per teleneurology ? Start the patient on atorvastatin 80 milligram p.o. at bedtime, monitor for myopathy as the patient has history of muscle pain when she was on rosuvastatin ? Bedside swallow eval, may feed if the patient passed ? Speech evaluation, physical therapy evaluation ? MRI stroke protocol Negative for acute stroke, chronic microvascular white matter changes ? Echo with bubble study, Pending ? Neurochecks every 4 hours, seizures precautions. ? HOB 30 degree ? Patient likely was having TIA-like symptoms secondary to hypertensive urgency/emergency and symptom resolution once blood pressure was controlled. Allowing for permissive hypertension currently. Anticipate discharge in the next 24 hours if patient remains symptom-free #History of coronary artery disease status post bypass surgery Patient is following up with Dr. Huff in [place], she mentions that she is taking Coreg for her blood pressure Plan ? Echocardiogram with bubble study was ordered, ? Obtain medical records was ordered please follow-up. ? Patient already on aspirin 325 mg #Hypertension emergency Patient presented with stroke symptoms with high blood pressure of 195/99 Plan ? Pending med reconciliation to resume her home meds after 24 hours of permissive hypertension ? Labetalol 10 mg IV every 2 hours of systolic blood pressure more than 220 mmHg #History of prediabetes Last A1c was 6 6 months ago, random blood sugar at this time is 127. Plan ? Repeat A1c level a.m., start the patient on insulin sliding scale if elevated. Hospital Maintenance: FEN: Cardiac diet if patient passes bedside swallow eval DVT ppx: Heparin subcu GI ppx: Protonix p.o. IV lines: PIV [place] Angel: None Code status: DO NOT INTUBATE Dispo: Telemetry Plan of care discussed with supervising attending Dr. Mariana Silverio M.D. PGY-3
--- NOTE | 2024-12-11 16:08 | VVPN_ITS ---
Telemedicine visit statement This visit was conducted with the use of interactive audio and video telecommunications system that permits real time communication between the patient and the provider. Patient's verbal consent for virtual visit was obtained on 12/11/24 at 1608. Documentation for date of: 12/11/24 Subjective Subjective Interval history: Patient presented with the slurred speech of acute onset but resolved. As her blood pressure was 170/122, given labetalol in the ER. Her symptoms have been resolved. Patient is being admitted to telemetry for TIA workup. No recurrent episodes reported after admission Virtual exam Vital Signs Temp Pulse Resp BP Pulse Ox O2 Del Method 97.7 F 95 19 132/71 H 95 Room Air 12/11/24 12:00 12/11/24 12:00 12/11/24 12:00 12/11/24 12:00 12/11/24 12:00 12/11/24 12:00 Objective Labs 12/12/24 04:49 12/12/24 04:49 Labs: Laboratory Results - last 24 hr 12/10/24 12/10/24 12/11/24 18:07 18:58 05:12 WBC 9.8 11.0 RBC 4.66 4.83 Hgb 12.0 12.6 Hct 36.1 37.8 MCV 78 L 78 L MCH 25.8 26.1 MCHC 33.2 33.3 RDW Std Deviation 38.2 38.3 Plt Count 290 285 Neut % (Auto) 70 66 Lymph % (Auto) 18 23 [place] % (Auto) 9 10 Eos % (Auto) 2 0 Baso % (Auto) 1 1 Neut # (Auto) 6.8 7.2 Lymph # (Auto) 1.8 2.5 [place] # (Auto) 0.9 H 1.1 H Eos # (Auto) 0.2 0.0 Baso # (Auto) 0.1 0.1 Immature Gran # (Auto) 0.04 H 0.03 H Absolute Nucleated RBC 0.00 0.00 Immature Gran % 0 0 Nucleated RBC % 0 0 PT 10.9 INR 1.0 APTT 29.8 Sodium 133 L 133 L Potassium 3.8 3.8 Chloride 99 96 L Carbon Dioxide 25.0 26.5 Anion Gap 9 11 BUN 20 18 Creatinine 1.3 1.4 H Estim Creat Clear Calc 32.6 L 48.0 L eGFR 42 L 38 L BUN/Creatinine Ratio 15 13 Glucose [address] H [address] Glu mg/dL 128 Hemoglobin A1c 6.1 H Calculated Osmolality 270 L 270 L Calcium 10.1 10.3 Corrected Calcium 10.1 10.3 H Phosphorus 4.3 Magnesium 1.6 1.7 Total Bilirubin 0.5 0.6 AST 19 19 ALT 13 10 Alkaline Phosphatase 71 61 Troponin I < 0.020 Total Protein 7.9 8.0 Albumin 5.1 H 5.3 H Globulin 2.8 2.7 Albumin/Globulin Ratio 1.8 2.0 Triglycerides 142 Cholesterol 165 LDL Cholesterol, Calc 84 HDL Cholesterol 53 Cholesterol/HDL Ratio 3.1 L Ur Collection Type Clean Catch Urine Color Lt-Yellow Urine Clarity Clear Urine pH 7.0 Ur Specific [place] 1.015 Urine Protein 1+ A Urine Glucose (UA) Negative Urine Ketones Negative Urine Blood Negative Urine Nitrite Negative Urine Bilirubin Negative Urine Urobilinogen (Auto) Negative Ur Leukocyte Esterase Positive Urine RBC 3 Urine WBC 2 Ur Squamous Epith Cells 1 Urine Bacteria None Assessment & Plan Problem List (1) Transient cerebral ischemia: Qualifiers: Transient cerebral ischemia type: other Qualified Code(s): G45.8 - Other transient cerebral ischemic attacks and related syndromes Status: Resolved Assessment and plan: TIA workup MRI is: Negative for acute stroke but CT angiogram showed stenosis of both internal carotid arteries. Continue aspirin, Plavix and statin Follow-up with echocardiogram (2) Carotid stenosis: Qualifiers: Laterality: left Qualified Code(s): I65.22 - Occlusion and stenosis of left carotid artery Status: Chronic Assessment and plan: Continue with aspirin, Plavix and statin: Aggressive medical management as we noted the CT angiogram showing stenosis on both sides (3) Hypertension: Status: Acute Assessment and plan: Continue with permissive blood pressure control
[2024-12-11] MEDS: ATORVASTATIN CALCIUM 20 MG TABLET 80 MG PO (20:08)
[2024-12-11 22:48] LABS: Thyroid Stimulating Hormone 1.44 uIU/mL (0.55-4.78)
[2024-12-12] VITALS: BP 131/67; PULSE 92; PULSE 96; RESP 17; TEMP 36.3; O2SAT 95
[2024-12-12 04:00] VITALS: BP 133/87; PULSE 87; PULSE 98; RESP 17; TEMP 36.4; O2SAT 95
[2024-12-12] MEDS: HEPARIN SOD INJ 5000 UNIT/ML VIAL SC (05:16)
[2024-12-12 06:00] VITALS: BMI 28.0
[2024-12-12 06:40] LABS: Basophils # (Auto) 0.1 Thou/mm3 (0.0-0.2); Basophils % (Auto) 1 % (0-2.5); Eosinophils # (Auto) 0.1 Thou/mm3 (0.0-0.5); Eosinophils % (Auto) 2 % (0-10); Hematocrit 34.1 % (36.0-46.0); Hemoglobin 11.3 g/dL (12.0-16.0); Immature Granulocytes % (Auto) 0 % (0-0); Immature Granulocytes Auto 0.02 Thou/mm3 (0.00-0.00); Lymphocytes # (Auto) 2.1 Thou/mm3 (1.0-4.8); Lymphocytes % (Auto) 32 % (10-50); Mean Corpuscular HGB Conc 33.1 g/dl (31.0-37.0); Mean Corpuscular Hemoglobin 26.3 pg (25.0-35.0); Mean Corpuscular Volume 80 fL (80-100); Monocytes # (Auto) 0.7 Thou/mm3 (0.0-0.8); Monocytes % (Auto) 11 % (0-12); Neutrophils # (Auto) 3.7 Thou/mm3 (1.8-7.7); Neutrophils % (Auto) 55 % (37-80); Nucleated Red Blood Cell % 0 /100 WBC (0); Platelet Count 268 Thou/mm3 (140-440); RDW Standard Deviation 37.9 fL (36.4-46.3); Red Blood Count 4.29 Miln/mm3 (4.00-5.20); White Blood Count 6.7 Thou/mm3 (3.6-11.0)
[2024-12-12 07:29] LABS: Alanine Aminotransferase 9 U/L (10-49); Albumin, Serum 4.6 gm/dL (3.4-4.8); Albumin/Globulin Ratio 1.9 (1.2-2.2); Alkaline Phosphatase 50 U/L (46-116); Anion Gap 10 (7-16); Aspartate Amino Transferase 13 U/L (0-34); BUN/Creatinine Ratio 16 Ratio (12-20); Bilirubin,Total 0.6 mg/dL (0.3-1.2); Blood Urea Nitrogen 22 mg/dL (9-23); Calcium 9.8 mg/dL (8.3-10.6); Calcium (Corrected) 9.8 mg/dL (8.5-10.1); Carbon Dioxide 27.3 mMol/L (20.0-31.0); Chloride 95 mMol/L (98-107); Creatinine (Component) 1.4 mg/dL (0.6-1.3); Estimated Creatinine Clearance 30.2 mL/min (>60); Globulin 2.4 gm/dL (2.3-3.5); Glucose 112 mg/dL (74-106); Magnesium 1.7 mg/dL (1.6-2.6); Osmolality,Calculated 268 (275-295); Phosphorous 3.8 mg/dL (2.4-5.1); Potassium 3.8 mMol/L (3.4-5.1); Sodium 132 mMol/L (136-145); eGFR 38 See Note
[2024-12-12 08:00] VITALS: BP 134/71; PULSE 120; PULSE 90; RESP 16; TEMP 36.3; O2SAT 93
[2024-12-12] MEDS: levETIRAcetam 250 MG TABLET 500 MG PO (08:45)
[2024-12-12] MEDS: Aspirin 325 MG TABLET PO (08:45)
[2024-12-12] MEDS: PANTOPRAZOLE 40 MG TABLET PO (08:45)
[2024-12-12] MEDS: DULoxetine HCL 30 MG CAPSULE 60 MG PO (08:45)
--- NOTE | 2024-12-12 09:36 | PC.SS ---
Patient Rosa Mendoza is a 78 Year old female admitted for aphasia. SS me with patient at bedside to discuss discharge plan and review demographic information. Patient appeared to be alert and oriented. Patient reports she lives at home with her , Zen Mendoza, [phone]. Who she reports is her surrogate decision maker. Patient reports that prior to admission she utilized a cane to assist with ambulation. Patient is able to complete all ADL's independently. Patient's choice of pharmacy is [facility]. Patient's PCP is Rich Cordova. At time of discharge patient will return home. Family will provide transportation. Discharge plan: Home Next of Kin: , Zen Mendoza
[2024-12-12 12:00] VITALS: BP 119/77; PULSE 83; RESP 16; TEMP 36.1; O2SAT 95
--- NOTE | 2024-12-12 16:09 | ESDS_ITS ---
Planned Discharge Date 12/12/24 DS: Providers Provider Date of admission: 12/10/24 21:44 Primary care physician: Rich Arana MD Admitting Provider: Akbar Mcdonald DO Attending Provider on Admission: Akbar Mcdonald DO Consults: 12/10/24 17:55 Consult to Neurology / Tele-Neurology Routine Comment: Consulting Provider: [facility] 12/10/24 21:58 Consult to Neurology / Tele-Neurology Stat Comment: Aphasia Consulting Provider: Martin Mueller Referral Physical Therapy Stat Comment: Physician Instructions: Attending Provider on DC: Luis Peña MD Discharging Provider: Jordana Fuentes MD DS: Diagnosis Problem List Completed Was Problem List Reviewed/Reconciled?: Yes Hospital Course Hospital Course Hospital course: Summary:A 78-year-old female patient reportedly known case of coronary artery disease status post bypass surgery follow-up with Dr. Huff in [place], hypertension, hyperlipidemia, remote history of hemorrhagic stroke 4 years ago, frequent headaches, questionable seizures, presented to the ED after she started to experience difficulty with speech. Patient was admitted for stroke workup, initial CT head negative for hemorrhage or mass effect, CT angio head and neck showed 60% right ICA stenosis and 70% left ICA stenosis. No LVO. Tele neurology consult was obtained recommended aspirin 325 mg, in-house neurology was consulted who followed the patient patient was started on 80 mg atorvastatin. MRI brain was negative for acute stroke, showed chronic microvascular white matter changes. Patient was admitted to telemetry unit. Echocardiogram was taken, pending read, spoke to neurologist Dr. Mueller who agreed with discharging the patient on dual antiplatelets for 21 days and high intensity statin, recommend following up with neurologist within 2 weeks of discharge. The patient is stable, ambulatory, afebrile and tolerating Per oral medications at the time of discharge. The patient understood and agreed to the treatment plan. Discharge instructions: ?Please follow-up with your primary doctor within 5 days of discharge from hospital. Recommend following up with neurologist within 2 weeks of discharge from the hospital, you may need a referral from your primary doctor for neurologist appointment. ?Please continue aspirin 81 mg/day, increase the dose of atorvastatin 80 mg/day, in case of cramps or bodyaches, you may want to see your primary doctor for blood work due to concern for medication adverse event. Continue Plavix for 20 more days and followup with neurologist. ?Please follow-up with the neurologist with findings of CT angiogram which show a 70 to 80% stenosis in the carotid, to decide between medical management versus surgical intervention. ?In case of worsening symptoms, please return to the emergency room. Problems: #Stroke most likely secondary to TIA #TIA rule out #Aphasia #Remote history of hemorrhagic stroke 40 years ago #Questionable history of seizures #Carotid artery stenosis #History of coronary artery disease status post bypass surgery #Hypertension emergency #History of prediabetes Plan of care discussed with attending, Dr. Mariana Fuentes Pgy 2 Time Spent with Patient Time attestation: Total time spent providing and/or coordinating discharge services: 30 min Quality: Stroke Pt Provided Written Stroke Discharge Instructions: Yes Exam Vital Signs Temp Pulse Resp BP Pulse Ox O2 Del Method 97.0 F 83 16 119/77 95 Room Air 12/12/24 12:12/12/24 12:12/12/24 12:12/12/24 12:00 12/12/24 12:12/12/24 12:00 Narrative Exam GEN: AOx3, able to speak full sentences, seen having breakfast, HEENT: NC/AC, PERRLA, oral mucosa moist, neck supple CVS: RRR, S1-S2 present, no murmurs appreciated RESP: Midline surgical scar noted, CTAB GI: soft,non distended, non tender, NBS MSK: able to move all 4 limbs, no lower extremity edema SKIN: warm and dry MEDICAL RECORD ADMINISTRATOR: NIHSS score of 0, CN II-XII and Sensation grossly intact. Discharge Plan Plan Patient Disposition: HOME (Self Care) Care Plan Goals: Please follow-up with your primary doctor within 5 days of discharge from hospital. Recommend following up with neurologist within 2 weeks of discharge from the hospital, you may need a referral from your primary doctor for neurologist appointment. Please continue aspirin 81 mg/day, increase the dose of atorvastatin 80 mg/day, in case of cramps or bodyaches, you may want to see your primary doctor for blood work due to concern for medication adverse event. Continue Plavix for 20 more days and followup with neurologist. Please follow-up with the neurologist with findings of CT angiogram which show a 70 to 80% stenosis in the carotid, to decide between medical management versus surgical intervention. In case of worsening symptoms, please return to the emergency room. Prescriptions/Referrals Prescriptions/Med Rec: New atorvastatin 80 mg tablet 80 mg PO HS 30 Days Qty: 30 0RF aspirin 81 mg tablet,delayed release (DR/EC) 81 mg PO QDAY Qty: 30 0RF clopidogrel 75 mg tablet 75 mg PO QDAY Qty: 20 0RF Continued lisinopril 5 MG tablet 40 mg PO DAILY Qty: 0 zolpidem [Ambien] 10 MG tablet 10 mg PO HSPRN PRN (Reason: Insomnia) Qty: 0 ezetimibe [Zetia] 10 MG tablet 10 mg PO DAILY Qty: 0 duloxetine [Cymbalta] 60 MG capsule,delayed release(DR/EC) 60 mg PO DAILY Qty: 0 Ubidecarenone/Vitamin E Mixed (Coq10 Sg 100 Softgel) 1 CAP capsule 1 cap PO DAILY Qty: 0 amlodipine 5 mg tablet 5 mg PO QDAY riboflavin (vitamin B2) 100 mg Tablet 100 mg PO QDAY levetiracetam [Keppra] 500 mg Tablet 500 mg PO BID carvedilol [Coreg] 3.125 mg Tablet 3.125 mg PO BID Rx Instructions: must administer with a meal/food hydrochlorothiazide 12.5 mg Capsule 25 mg PO QAM Hold Instructions: Resume on 03/27/24. folic acid 1 mg Tablet 1 mg PO QID nitroglycerin 0.4 mg tablet, sublingual 0.4 mg BUCCAL PRN PRN (Reason: Angina) epinephrine 0.3 mg/0.3 mL auto-injector 0.3 ml SUBCUT PRN PRN (Reason: Anaphylaxis) Discontinued ATORVASTATIN CALCIUM tablet 40 mg PO DAILY Qty: 0 Referrals: Rich Arana MD [Primary Care Provider] - Patient/Caregiver Discharge Instructions Education Materials: Discharge Instructions for ... Print Language: Ecuadorean Stand Alone Forms: Tiffany Award Info., Patient Portal Info Letter Discharge Order Discharge Orders: Discharge (Routine); Ordered 12/12/24 Ordered By: Jordana Fuentes Quality Discharge Quality Measures VTE prophylaxis
--- NOTE | 2024-12-12 23:11 | PD.VPROG1 ---
Telemedicine visit statement This visit was conducted with the use of phone was obtained on 12/12/24. Documentation for date of: 12/12/24 Subjective Subjective Interval history: Patient presented with the slurred speech of acute onset but resolved. As her blood pressure was 170/122, given labetalol in the ER. Her symptoms have been resolved. Patient is being admitted to telemetry for TIA workup. No recurrent episodes reported after admission Virtual exam Vital Signs Temp Pulse Resp BP Pulse Ox O2 Del Method 97.0 F 83 16 119/77 95 Room Air 12/12/24 12:00 12/12/24 12:00 12/12/24 12:00 12/12/24 12:00 12/12/24 12:00 12/12/24 12:00 Objective Labs 12/12/24 04:49 12/12/24 04:49 Labs: Laboratory Results - last 24 hr 12/12/24 04:49 WBC 6.7 RBC 4.29 Hgb 11.3 L Hct 34.1 L MCV 80 MCH 26.3 MCHC 33.1 RDW Std Deviation 37.9 Plt Count 268 Neut % (Auto) 55 Lymph % (Auto) 32 [place] % (Auto) 11 Eos % (Auto) 2 Baso % (Auto) 1 Neut # (Auto) 3.7 Lymph # (Auto) 2.1 [place] # (Auto) 0.7 Eos # (Auto) 0.1 Baso # (Auto) 0.1 Immature Gran # (Auto) 0.02 H Absolute Nucleated RBC 0.00 Immature Gran % 0 Nucleated RBC % 0 Sodium 132 L Potassium 3.8 Chloride 95 L Carbon Dioxide 27.3 Anion Gap 10 BUN 22 Creatinine 1.4 H Estim Creat Clear Calc 30.2 L eGFR 38 L BUN/Creatinine Ratio 16 Glucose 112 H Calculated Osmolality 268 L Calcium 9.8 Corrected Calcium 9.8 Phosphorus 3.8 Magnesium 1.7 Total Bilirubin 0.6 AST 13 ALT 9 L Alkaline Phosphatase 50 Total Protein 7.0 Albumin 4.6 D Globulin 2.4 Albumin/Globulin Ratio 1.9 Assessment & Plan Problem List (1) Transient cerebral ischemia: Qualifiers: Transient cerebral ischemia type: other Qualified Code(s): G45.8 - Other transient cerebral ischemic attacks and related syndromes Status: Resolved Assessment and plan: TIA workup MRI is: Negative for acute stroke but CT angiogram showed stenosis of both internal carotid arteries. Patient is stable on discharge on aspirin, Plavix and statin Follow-up with echocardiogram Follow-up in 2 weeks (2) Carotid stenosis: Qualifiers: Laterality: left Qualified Code(s): I65.22 - Occlusion and stenosis of left carotid artery Status: Chronic Assessment and plan: Continue with aspirin, Plavix and statin: Aggressive medical management as we noted the CT angiogram showing stenosis on both sides (3) Hypertension: Status: Acute Assessment and plan: Continue with permissive blood pressure control
== END 2024-12-12 13:08 | disposition home or self-care (01) | DRG 69 ==
LOC: SERX 21:56 → SERHOLD 22:30 → S2NX 23:31
PROVIDERS: Emergency Medicine; Student in an Organized Health Care Education/Training Program; Admitting Provider Student in an Organized Health Care Education/Training Program; Emergency Provider Emergency Medicine; PCP Specialist; Visit Provider Student in an Organized Health Care Education/Training Program
DX: G45.9 Transient cerebral ischemic attack, unspecified (principal); I16.1 Hypertensive emergency; I65.23 Occlusion and stenosis of bilateral carotid arteries; R73.03 Prediabetes; I25.10 Atherosclerotic heart disease of native coronary artery without angina pectoris; Z95.1 Presence of aortocoronary bypass graft; Z86.73 Personal history of transient ischemic attack (TIA), and cerebral infarction without residual deficits; I10 Essential (primary) hypertension; E78.5 Hyperlipidemia, unspecified
CPT/HCPCS: 36415; 70450; 70496; 70498; 70551; 80053; 80061; 81001; 83036; 83735; 84100; 84443; 84484; 85025; 85610; 85730; 87811; 92610; 93306; 97162; A4649; J1643; J2405; J3490; Q9967; A9270; J1920

== ENCOUNTER → 2025-03-10 | Outpatient (CLI) | payer MEDICARE, BC, SELFPAY ==
[2025-03-10 13:17] LABS: Creatinine MALB Rnd Ur 113 mg/dL (30-125); Microalbumin Creat Ratio 87 mg/gCrea (<30); Microalbumin, Random Urine 98 mg/L (0-300)
[2025-03-10 13:33] LABS: Alanine Aminotransferase 9 U/L (10-49); Albumin, Serum 4.8 gm/dL (3.4-4.8); Alkaline Phosphatase 63 U/L (46-116); Anion Gap 7 (7-16); Aspartate Amino Transferase 18 U/L (0-34); BUN/Creatinine Ratio 15 Ratio (12-20); Bilirubin,Total 0.7 mg/dL (0.3-1.2); Blood Urea Nitrogen 21 mg/dL (9-23); Calcium 10.1 mg/dL (8.3-10.6); Calcium (Corrected) 10.1 mg/dL (8.5-10.1); Cardiac Risk Estimate 3.2 RATIO (3.7-5.6); Chloride 101 mMol/L (98-107); Cholesterol 137 mg/dL (132-200); Creatinine (Component) 1.4 mg/dL (0.6-1.3); Free T4 (Free Thyroxine) 1.17 ng/dL (0.89-1.76); Globulin 2.4 gm/dL (2.3-3.5); Glucose 117 mg/dL (74-106); HDL Cholesterol 43 mg/dL (40-60); LDL Cholesterol,Calculated 58 mg/dL (0-130); Osmolality,Calculated 275 (275-295); Potassium 4.3 mMol/L (3.4-5.1); Sodium 136 mMol/L (136-145); Total Protein 7.2 gm/dL (5.7-8.2); Triglycerides 180 mg/dL (30-150); eGFR 38 See Note
== END | disposition home or self-care (01) ==
PROVIDERS: PCP Specialist; Referring Provider Specialist; Visit Provider Specialist
DX: E03.8 Other specified hypothyroidism (principal); E11.65 Type 2 diabetes mellitus with hyperglycemia; E78.2 Mixed hyperlipidemia; I10 Essential (primary) hypertension
CPT/HCPCS: 36415; 80053; 80061; 82043; 82570; 84439; 84443